=== PATIENT | male | born 1980 | race African-American/Black ===

== ENCOUNTER 2020-12-09 22:01 | Emergency (ER) | payer SELFPAY ==
[~2020-12-09] VITALS: Ht 172.7 cm; Wt 104.0 kg
[2020-12-09] MEDS ORDERED: ONDANSETRON HCL 4MG/2ML INJ IV STA (23:00)
[2020-12-09] MEDS ORDERED: SODIUM CHLORIDE 0.9% 1,000 ML IV ONE ×3 (23:00→23:30)
[2020-12-09] MEDS ORDERED: NOREPINEPHRINE 8MG/250ML PMX 250 ML IV STA (23:05)
[2020-12-09] MEDS ORDERED: VASOPRESSIN 20 UNIT in SODIUM CHLORIDE 0.9% 99 ML STA (23:05)
[2020-12-09] MEDS ORDERED: EPINEPHRINE 5 MG in SODIUM CHLORIDE 0.9% 245 ML IV STA (23:05)
[2020-12-09 23:26] LABS: CHLORIDE 105 mEq/L (98-107)
[2020-12-09 23:30] LABS: ETHANOL BLOOD 294 mg/dL
[2020-12-09 23:35] LABS: BASOPHILS % 0.4 % (0.0-2.0); EOSINOPHILS % 0.3 % (0.0-5.0); HEMOGLOBIN. 9.1 g/dL (14.0-18.0); LYMPHOCYTES % 39.4 % (20.0-50.0); MEAN CORPUSCULAR HEMOGLOBIN 28.9 pg (28.0-32.0); MEAN CORPUSCULAR VOLUME 85.9 fL (80.0-94.0); MEAN PLATELET VOLUME 7.3 fl (7.4-10.4); MONOCYTES % 0.3 % (2.0-8.0); NEUTROPHILS % 59.6 % (40.0-76.0); PLATELET 198 x1000/uL (130-400); RED BLOOD CELL COUNT 3.15 mill/uL (4.7-6.1); RED CELL DISTRIBUTION WIDTH 18.4 % (11.6-14.6)
[2020-12-09 23:36] LABS: D-DIMER 32.61 mg/L FEU (<0.50); INR 1.7; PROTHROMBIN TIME 17.9 sec (9.6-11.0)
[2020-12-09 23:44] LABS: BG BASE EXCESS -17.7 mmol/L (-2.0-2.0); BG CARBOXYHEMOGLOBIN 0.4 % (0.5-1.5); BG DEOXYHEMOGLOBIN 1.4 % (0.0-5.0); BG FRACTION INSPIRED OXYGEN 100; BG HCO3 ACT 11.7 mmol/L (22.0-26.0); BG METHEMOGLOBIN 0.5 % (0.0-1.5); BG OXYGEN SATURATION 98.6 % (92.0-98.5); BG OXYHEMOGLOBIN 97.7 % (94.0-97.0); BG PCO2 43.2 mmHg (35.0-45.0); BG PH 7.049 (7.350-7.450); BG PO2 207.4 mmHg (75.0-100.0); BG TOTAL HEMOGLOBIN 8.5 g/dL (12.0-18.0); BG TOTAL RESPIRATORY RATE 250 b/min; BG VENT MODE VENT - AC
[2020-12-09 23:46] LABS: BG SAMPLE SITE RIGHT FEMORAL
[2020-12-09] MEDS ORDERED: SODIUM BICARBONATE 150 MEQ in DEXTROSE 5% WATER 1,000 ML IV STA (23:48)
[2020-12-10 00:30] LABS: CLARITY URINE TURBID (CLEAR); COLOR URINE ORANGE (YELLOW); KETONES URINE NEGATIVE (NEGATIVE); LEUKOCYTE ESTERASE URINE 3+ (NEGATIVE); NITRITE URINE NEGATIVE (NEGATIVE); OCCULT BLOOD URINE 3+ (NEGATIVE); PH URINE 7.5 (4.5-8.0); PROTEIN URINE 2+ (NEGATIVE); SPECIFIC GRAVITY URINE 1.006 (1.005-1.030)
[2020-12-10 00:41] LABS: *AMPHETAMINES SCREEN URINE NEGATIVE (NEGATIVE)
[2020-12-10 00:42] LABS: *BARBITURATES SCREEN URINE NEGATIVE (NEGATIVE); *BENZODIAZEPINES SCREEN URINE NEGATIVE (NEGATIVE); *COCAINE SCREEN URINE NEGATIVE (NEGATIVE); METHADONE URINE SCREEN NEGATIVE (NEGATIVE); OPIATES URINE SCREEN NEGATIVE (NEGATIVE); PHENCYCLIDINE URINE SCREEN NEGATIVE (NEGATIVE)
[2020-12-10 00:43] LABS: CANNABINOID URINE SCREEN PRESUMTIVE POSITIVE (NEGATIVE)
[2020-12-10] MEDS ORDERED: EPINEPHRINE 10 MG in SODIUM CHLORIDE 0.9% 250 ML IV PRN (01:15)
[2020-12-10] MEDS ORDERED: LEVOFLOXACIN 750MG PREMIX 150 ML IV ONE (01:30)
[2020-12-10] MEDS ORDERED: METRONIDAZOLE 500 MG PREMIX 100 ML IV ONE (01:30)
[2020-12-10] MEDS ORDERED: VANCOMYCIN 1 G PREMIX 200 ML IV ONE (01:30)
[2020-12-10] MEDS ORDERED: NOREPINEPHRINE 8MG/250ML PMX 250 ML IV PRN (02:00)
[2020-12-10] MEDS ORDERED: SODIUM BICARBONATE 8.4% 1 MEQ/ML 50ML SYR IV ONE ×2 (08:25→10:56)
[2020-12-10] MEDS ORDERED: EPINEPHRINE 0.1MG/ML (1:10,000) 10ML SYR ONE ×2 (08:25→10:56)
[2020-12-10] MEDS ORDERED: CALCIUM CHLORIDE 1GM/10ML SYR IV ONE ×2 (08:25→10:56)
[2020-12-10] MEDS ORDERED: ETOMIDATE 2MG/ML 10ML VIAL IV ONE (08:35)
[2020-12-10] MEDS ORDERED: VECURONIUM BROMIDE 10 MG/VIAL IV ONE (08:35)
[2020-12-10 09:32] VITALS: BP 105/42
== END 2020-12-10 09:42 ==
LOC: ER 22:01 → EDBEDREQ 23:08 → EDBEDREQTM 12-10 03:42 → EDBEDREQDT 12-10 03:42 → EDBEDREQSVC 12-10 03:42 → EDBEDREQ 12-10 03:42 → CANBEDREQ 12-10 08:47 → ER 12-10 09:42
DX: A41.9 Sepsis, unspecified organism (principal); I46.9 Cardiac arrest, cause unspecified; N39.0 Urinary tract infection, site not specified; E87.2 Acidosis; I10 Essential (primary) hypertension; I83.90 Asymptomatic varicose veins of unspecified lower extremity; J45.909 Unspecified asthma, uncomplicated; Z88.0 Allergy status to penicillin
CPT/HCPCS: 31500; 36415; 36600; 70450; 71045; 80053; 80305; 80307; 80320; 80329; 81003; 82375; 82805; 83605; 83880; 84145; 84484; 85025; 85379; 85610; 87040; 87077; 87086; 87186; 92950; 93005; 96365; 96367; 96375; 99291; J1956; J2405; J3370; J3490; J7030; J7050; J7070; G0480